=== PATIENT | female | born 1945 | race African-American/Black ===

== ENCOUNTER 2017-01-05 11:21 | Emergency (ER) | payer BC, OTHER ==
[2017-01-05 11:33] VITALS: TEMP 98.1; BMI 25.7
--- NOTE | 2017-01-05 12:15 | PDOC ---
History of Present Illness - General History Source: Patient Exam Limitations: No Limitations - History of Present Illness Initial Comments: 01/05/17 15:37 The patient is a 65 year old female with a significant past medical history of hypertension (noncompliant with medication), presenting to the Emergency Department with left sided neck pain radiating to her left shoulder, and left leg pain for 3 days. The patient reports that she was watching TV last night when the neck pain gradually became worse. She reports that the neck pain radiates to her left shoulder and upper arm, and describes the pain as achy and is worse with certain movements. There is no associated numbness/tingling/ weakness in her hand/forearm and there was no recent injuries. She also reports intermittent left lower leg pain, the last time she felt the pain was yesterday. She describes her pain as an aching sensation in her lower leg but there is no pain currently and there is no associated swelling, numbness/ tingling/weakness, hip pain, back pain, recent trauma. She denies any exacerbating factors such as movement for her leg pain. Pt denies any heavy lifting. No worsening of symptoms on exertion/ambulation. The patient denies weakness, arthralgia, or back pain. No associated facial numbness/tingling/weakness. Patient denies recent fall or trauma. Patient denies dizziness, headache, and visual changes. Patient denies chest pain, palpitations, and diaphoresis. Patient denies cough, fever, and chills. Patient denies nausea, vomiting, and diarrhea. <Jenni Rosario - Last Filed: 01/05/17 15:37> - General History Source: Patient Exam Limitations: No Limitations - History of Present Illness Initial Comments: Prior HPI is incorrect and for the wrong patient - the below HPI is correct. The patient is a 71 year old female with a significant past medical history of dementia, hypertension, acid reflux, gastritis, vertigo, and thyroid disease, presenting to the Emergency Department with altered mental status and confusion. The pt awoke today and was saying things like 'I went to the eye doctor with Rajendra' to her rajendra, referring to her inn the 3rd person , and when asked what his name was, she had trouble remembering his name. Per the family, the pt has been seeing neurology and ophthalmalogy for complaint of 'floaters', which the family describes as her seeing things in the room, and seeing it fall on the things she eats/drinks, which makes her not want to eat/ drink it. Family also notes that yesterday she was sleeping more than usual and the pt had complained of a mild headache which seemed to resolve after an aspirin. The family notes that the pt has had trouble remembering her familes and firends names here and there but not consistently. Pt also notes some dysuria for the past efw months. Pt denies current headache, dizziness, n/v, fever/chills, cough, abd pain, back pain, leg swelling, diarrhea/melena, vision changes, nuumbness/tingling/weakness. Past Medical Hx: hypertension, acid reflux, gastritis, vertigo, and thyroid disease Neurologist: Dr. Ojeda <Eyal Cardenas - Last Filed: 01/07/17 07:31> - General Chief Complaint: Altered Mental Status Stated Complaint: CONFUSION Time Seen by Provider: 01/05/17 11:39 Past History <Jenni Rosario - Last Filed: 01/05/17 15:37> - Past Medical History Anemia: No Asthma: No Cancer: No Cardiac Disorders: Yes (PALPITATIONS) CVA: No COPD: No CHF: No Dementia: No Diabetes: No GI Disorders: Yes (ACID REFLUX;H. PYLORI;GASTRITIS;H/H; TUBULOVILLOUS ADENOMA POLYP;) Disorders: No HTN: Yes Hypercholesterolemia: No Liver Disease: No Suicide Attempt (Hx): No Seizures: No Thyroid Disease: Yes Other medical history: fell in 2013 hit her head - Surgical History Abdominal Surgery: No Appendectomy: No Cardiac Surgery: No Cholecystectomy: Yes Lung Surgery: No Neurologic Surgery: No Orthopedic Surgery: No - Psycho/Social/Smoking Cessation Hx Anxiety: No Suicidal Ideation: No Smoking Status: No Smoking History: Never smoked Number of Cigarettes Smoked Daily: 0 Information on smoking cessation initiated: No Hx Alcohol Use: No Drug/Substance Use Hx: No Substance Use Type: None Hx Substance Use Treatment: No <Eyal Cardenas - Last Filed: 01/07/17 07:31> - Past Medical History Allergies/Adverse Reactions: Allergies Allergy/AdvReac Type Severity Reaction Status Date / Time No Known Allergies Allergy Verified 01/05/17 11:26 Home Medications: Ambulatory Orders Fosinopril Sodium 10 mg PO DAILY 0701/13 Metoprolol Succinate [Toprol XL -] 50 mg PO DAILY 05/11/13 Donepezil HCl [Aricept -] 10 mg PO DAILY 02/28/15 Simvastatin [Zocor -] 1 tab PO DAILY 06/03/15 Quetiapine Fumarate [Seroquel -] 25 mg PO HS 01/05/17 Review of Systems - Review of Systems Able to Perform ROS?: Yes Comments:: 01/05/17 15:38 CONSTITUTIONAL: No reported: Fever, Chills, Diaphoresis, Generalized Weakness, Malaise, Loss of Appetite HEENT: No reported: Rhinorrhea, Nasal Congestion, Throat Pain, Throat Swelling, Difficulty Swallowing, Mouth Swelling, Ear Pain, Eye Pain, Visual Changes CARDIOVASCULAR: No reported: Chest Pain, Syncope, Palpitations, Irregular Heart Rate, Lightheadedness, Peripheral Edema RESPIRATORY: No reported: Cough, Shortness of Breath, SOB with Exertion, Orthopnea, Wheezing , Stridor, Hemoptysis GASTROINTESTINAL: No reported: Abdominal pain, Abdominal Distension, Nausea, Vomiting, Diarrhea, Constipation, Melena, Hematochezia GENITOURINARY: No reported: Dysuria, Frequency, Urgency, Hesitancy, Flank Pain, Genital Pain MUSCULOSKELETAL: Present: + Left side neck pain, + Left shoulder pain, + Left leg pain No reported: Myalgia, Arthralgia, Joint Swelling, Back pain SKIN: No reported: Rash, Itching, Pallor HEMATOLOGIC/IMMUNOLOGIC: No reported: Easy Bleeding, Easy Bruising, Lymphadenopathy, Frequent infections ENDOCRINE: No reported: Unexplained Weight Gain, Unexplained Weight Loss, Heat Intolerance , Cold Intolerance NEUROLOGIC: No reported: Headache, Focal Weakness, Paresthesias, Vertigo, Lightheadedness, Unsteady Gait, Seizure, Mental Status Changes, Incontinence PSYCHIATRIC: No reported: Anxiety, Depression <Jenni Rosario - Last Filed: 01/05/17 15:37> - Review of Systems Able to Perform ROS?: Yes Comments:: The Prior ROS is for the wrong patient - The below ROS is correct 01/07/17 07:29 CONSTITUTIONAL: No reported: Fever, Chills, Diaphoresis, Generalized Weakness, Malaise, Loss of Appetite HEENT: No reported: Rhinorrhea, Nasal Congestion, Throat Pain, Throat Swelling, Difficulty Swallowing, Mouth Swelling, Ear Pain, Eye Pain, Visual Changes CARDIOVASCULAR: No reported: Chest Pain, Syncope, Palpitations, Irregular Heart Rate, Lightheadedness, Peripheral Edema RESPIRATORY: No reported: Cough, Shortness of Breath, SOB with Exertion, Orthopnea, Wheezing , Stridor, Hemoptysis GASTROINTESTINAL: No reported: Abdominal pain, Abdominal Distension, Nausea, Vomiting, Diarrhea, Constipation, Melena, Hematochezia GENITOURINARY: Reported: + Dysuria No reported: Frequency, Urgency, Hesitancy, Flank Pain, Genital Pain MUSCULOSKELETAL: No reported: Myalgia, Arthralgia, Joint Swelling, Back pain, Neck Pain SKIN: No reported: Rash, Itching, Pallor HEMATOLOGIC/IMMUNOLOGIC: No reported: Easy Bleeding, Easy Bruising, Lymphadenopathy, Frequent infections ENDOCRINE: No reported: Unexplained Weight Gain, Unexplained Weight Loss, Heat Intolerance , Cold Intolerance NEUROLOGIC: +confusion per family No reported: Headache, Focal Weakness, Paresthesias, Vertigo, Lightheadedness, Unsteady Gait, Seizure, Incontinence PSYCHIATRIC: No reported: Anxiety, Depression <Ronald,Eyal - Last Filed: 01/07/17 07:31> *Physical Exam - Vital Signs Last Vital Signs Temp Pulse Resp BP Pulse Ox 98.1 F 98 H 18 157/101 100 01/05/17 11:24 01/05/17 11:24 01/05/17 11:24 01/05/17 11:24 01/05/17 11:24 - Physical Exam Comments: 01/05/17 15:38 GENERAL: The patient is awake, alert, and fully oriented, Nontoxic - in no acute distress. HEAD: Normocephalic, atraumatic. EYES: extraocular movements intact, sclera anicteric, conjunctiva clear. ENT: Normal voice, Moist mucous membranes. NECK: Normal range of motion, supple LUNGS: Breath sounds equal, clear to auscultation bilaterally. No wheezes, no rhonchi, no rales. HEART: Regular rate and rhythm, normal S1 and S2 without murmur, rub or gallop. ABDOMEN: Soft, nontender, normoactive bowel sounds. No guarding, no rebound. . No CVA tenderness EXTREMITIES: +tenderness in the L trapezius, worse with arm abduction, normal strength/sensation in extremities, Normal range of motion, no edema. negative homans sign b/l, no focal tenderness in the leg/foot. sensation/motor intact in LE/UE. NEUROLOGICAL: No facial assymetry, Normal speech cn2-12 intact symmetrically PSYCH: Normal mood, normal affect. SKIN: Warm, Dry, normal turgor. <Jenni Rosario - Last Filed: 01/05/17 15:37> - Vital Signs Last Vital Signs Temp Pulse Resp BP Pulse Ox 98.1 F 98 H 18 157/101 100 01/05/17 11:24 01/05/17 11:24 01/05/17 11:24 01/05/17 11:24 01/05/17 11:24 - Physical Exam Comments: The above PE is for the wrong patient - the PE below is correct. 01/07/17 07:30 GENERAL: A&O x2. The patient is awake, and alert. Nontoxic - in no acute distress. HEAD: Normocephalic, atraumatic. EYES: extraocular movements intact, sclera anicteric, conjunctiva clear. ENT: Normal voice, Moist mucous membranes. NECK: Normal range of motion, No JVD LUNGS: Breath sounds equal, clear to auscultation bilaterally. No wheezes, no rhonchi, no rales. HEART: Regular rate and rhythm, normal S1 and S2 without murmur, rub or gallop. ABDOMEN: Soft, nontender, normoactive bowel sounds. No guarding, no rebound. No masses. No CVA tenderness EXTREMITIES: Normal range of motion, no edema. No clubbing or cyanosis. No cords , erythema, or tenderness. PSYCH: Normal mood, normal affect. SKIN: Warm, Dry, normal turgor. NEURO: Mental status: The patient is oriented x2. Cranial nerves: Cranial nerves II through XII are intact Motor: The upper extremities are 5 over 5 in all muscle groups. The lower extremities are 5 over 5 in all muscle groups. Negative pronator drift Sensation: Sensation is intact to light touch throughout. romberg negative Cerebellar: [id number] is normal in both upper extremities. Gait: Normal. <Eyal Cardenas - Last Filed: 01/07/17 07:31> Heart Score/ECG Review - ECG Impressions Comment:: 01/05/17 13:14 Twelve-lead EKG was performed and reviewed by me. There is normal sinus rhythm with a normal rate. Rate of 80 The axis is normal. The intervals are normal. There is normal R wave progression Nonspecific ST-T wave changes <Eyal Cardenas - Last Filed: 01/07/17 07:31> ED Treatment Course - LABORATORY CBC & Chemistry Diagram: 01/05/17 12:05 01/05/17 12:05 - ADDITIONAL ORDERS Additional order review: Laboratory Results 01/05/17 01/05/17 01/05/17 12:05 12:05 12:05 INR Sodium 146 H Potassium 3.4 L D Chloride 108 H Carbon Dioxide 29 Anion Gap 9 BUN 7 D Creatinine 1.0 Creat Clearance w eGFR 54.66 Random Glucose 113 H D Calcium 9.4 Total Bilirubin 0.6 AST 30 D ALT 19 D Alkaline Phosphatase 57 Creatine Kinase 387 H D CK-MB (CK-2) 1.890 Troponin I < 0.02 Total Protein 7.3 Albumin 4.0 TSH 0.55 Urine Color Ltyellow Urine Appearance Clear Urine pH 7.0 Ur Specific [place] 1.009 Urine Protein Negative Urine Glucose (UA) Negative Urine Ketones Trace H Urine Blood Negative Urine Nitrite Negative Urine Bilirubin Negative Urine Urobilinogen Negative Ur Leukocyte Esterase Negative 01/05/17 12:05 INR 1.17 H Sodium Potassium Chloride Carbon Dioxide Anion Gap BUN Creatinine Creat Clearance w eGFR Random Glucose Calcium Total Bilirubin AST ALT Alkaline Phosphatase Creatine Kinase CK-MB (CK-2) Troponin I Total Protein Albumin TSH Urine Color Urine Appearance Urine pH Ur Specific [place] Urine Protein Urine Glucose (UA) Urine Ketones Urine Blood Urine Nitrite Urine Bilirubin Urine Urobilinogen Ur Leukocyte Esterase 01/05/17 12:05 RBC 4.31 MCV 91.1 MCHC 32.5 RDW 13.9 MPV 7.3 L Neutrophils % 70.0 Lymphocytes % 23.9 D Monocytes % 5.2 Eosinophils % 0.3 Basophils % 0.6 <Jenni Rosario - Last Filed: 01/05/17 15:37> - LABORATORY CBC & Chemistry Diagram: 01/05/17 12:05 01/05/17 12:05 - RADIOLOGY Radiology Studies Ordered: Category Date Time Status HEAD CT WITHOUT CONTRAST [CT] Stat CT Scan 01/05/17 12:00 Ordered CHEST X-RAY PORTABLE* [RAD] Stat Radiology 01/05/17 12:00 Ordered <Eyal Cardenas - Last Filed: 01/07/17 07:31> Medical Decision Making - Medical Decision Making 01/05/17 12:50 71y F hx of dementia, htn, hl, presents with complaint AMS - when the pt awoke this morning, the pt was referring to her in 3rd person which she has never done before. Pt denies any complaints currenlty. exam unremarkable beside mental status AOx2. will obtain ct head, ua/cxr to r/o occult infection will obtain blood work to r/o anemia, metabolic dernagement. suspect her syptoms may be secondary to her dementia - but will rule out organic causes. A portion of this note was documented by scribe services under my direction. I have reviewed the details of the note, within reason, and agree with the documentation with the following case summary and management plan written by me 01/05/17 13:15 01/05/17 15:59 labs reviewed slightly low K - will replete with 40PO head ct negative ua, cxr negative for infection 01/05/17 16:16 will d/c the patient with pmd fu return precautions were discussed will have the pt fu with dr. broussard and dr. ojeda next week. return precautions were discussed I discussed the physical exam findings, ancillary test results and final diagnoses with the patient. I answered all of the patient's questions. The patient was satisfied with the care received and felt comfortable with the discharge plan and treatment plan. The patient will call their primary care physician within 24 hours to arrange follow-up and will return to the Emergency Department with any new, persistent or worsening symptoms. <Eyal Cardenas - Last Filed: 01/07/17 07:31> *DC/Admit/Observation/Transfer - Attestations Scribe Attestion: 01/05/17 15:39 Documentation prepared by Jenni Rosario, acting as medical coder for Eyal Cardenas MD. <Jenni Rosario - Last Filed: 01/05/17 15:37> - Discharge Dispostion Admit: No <Eyal Cardenas - Last Filed: 01/07/17 07:31> Diagnosis at time of Disposition: Confusion - Discharge Dispostion Disposition: HOME Condition at time of disposition: Improved - Referrals Referrals: Anderson Carreno MD [Primary Care Provider] - Paramjit Ojeda MD [Staff Physician] - - Patient Instructions Printed Discharge Instructions: DI for Alzheimer's Disease Additional Instructions: Return to the emergency department immediately with ANY new, persistent or worsening symptoms. Your workup today in the hospital is negative for any organic disease. You MUST call and follow up with your doctor and neurollgist within several days for further evaluation of your symptoms. Results were discussed with you. Please make sure your doctor reviews the results of your emergency evaluation.
[2017-01-05 12:43] LABS: BASOPHIL 0.6 % (0-2.0); EOSINOPHIL 0.3 % (0-4.5); MCH 29.6 pg (25.7-33.7); MCHC 32.5 g/dl (32.0-36.0); MEAN CELL VOLUME 91.1 fl (80-96); MEAN PLT VOLUME 7.3 fl (7.5-11.1); PLATELET COUNT 217 K/MM3 (134-434); RDW 13.9 % (11.6-15.6); WHITE BLOOD COUNT 6.6 K/mm3 (4.0-10.0)
[2017-01-05 13:02] LABS: INR 1.17 (0.82-1.09); PROTHROMBIN TIME (PATIENT) 12.9 SEC (9.98-11.88)
[2017-01-05 13:13] LABS: ANION GAP 9 (8-16); CALCIUM 9.4 mg/dL (8.5-10.1); CO2 29 mmol/L (21-32); GLUCOSE,RANDOM 113 mg/dL (74-106); SGOT/AST 30 U/L (15-37); SGPT/ALT 19 U/L (12-78)
[2017-01-05 13:17] LABS: ALK PHOS 57 U/L (45-117); BILIRUBIN,TOTAL 0.6 mg/dL (0.2-1.0); TOT PROT 7.3 g/dl (6.4-8.2); TROPONIN I < 0.02 ng/ml (0.00-0.05)
[2017-01-05 15:17] LABS: URINE APPEARANCE CLEAR; URINE BILIRUBIN NEGATIVE (NEGATIVE); URINE BLOOD NEGATIVE (NEGATIVE); URINE COLOR LTYELLOW; URINE GLUCOSE (UA) NEGATIVE (NEGATIVE); URINE KETONE TRACE (NEGATIVE); URINE LEUK ESTERASE NEGATIVE (NEGATIVE); URINE NITRITE NEGATIVE (NEGATIVE); URINE PROTEIN NEGATIVE (NEGATIVE); URINE UROBILINOGEN NEGATIVE E.U./dl (0.2-1.0)
[2017-01-05] MEDS ORDERED: POTASSIUM CHLORIDE TABS 20 MEQ TABLET.ER (FP) PO ONE (15:51)
[2017-01-05] MEDS ORDERED: POTASSIUM CHLORIDE 40 MEQ/30 ML UNIT DOSE CUP ONE (15:53)
[2017-01-05 16:26] VITALS: BP 136/78; PULSE 69
--- NOTE | 2017-01-05 21:01 | EKG ---
Test Reason : Blood Pressure : / mmHG Vent. Rate : 080 BPM Atrial Rate : 080 BPM P-R Int : 144 ms QRS Dur : 070 ms QT Int : 356 ms P-R-T Axes : 070 030 040 degrees QTc Int : 410 ms NORMAL SINUS RHYTHM POSSIBLE LEFT ATRIAL ENLARGEMENT NONSPECIFIC T WAVE ABNORMALITY ABNORMAL ECG WHEN COMPARED WITH ECG OF 28-FEB-2015 09:05, NO SIGNIFICANT CHANGE WAS FOUND Confirmed by SIN ROGERS MD ([id number]) on 01/05/2017 9:00:55 PM Referred By: Confirmed By:SIN ROGERS MD
== END 2017-01-05 16:26 | disposition home or self-care (01) ==
LOC: JER 11:21
DX: F03.90 Unspecified dementia, unspecified severity, without behavioral disturbance, psychotic disturbance, mood disturbance, and anxiety (principal); I10 Essential (primary) hypertension; Z91.14 Patient's other noncompliance with medication regimen; E87.6 Hypokalemia
CPT/HCPCS: 36415; 70450-TC; 71010-TC; 80053; 81003; 82550; 82553; 84443; 84484; 85025; 85610; 93005; 93010; 99283-25

== ENCOUNTER 2017-02-03 11:49 | Emergency (ER) | payer BC, OTHER ==
[2017-02-03 11:52] VITALS: TEMP 98.2; BMI 25.7
--- NOTE | 2017-02-03 12:01 | PDOC ---
History of Present Illness - History of Present Illness Initial Comments: 02/03/17 12:38 The patient is a 71 year old female, with a significant past medical history of dementia, hypertension (noncompliant with medication), GERD, gastritis, vertigo , and thyroid disease , who presents to the emergency department with chest pain and hot flashes today. She reports her chest pain is localized to her midsternal region and radiates just under her breast bilaterally which she states is brought on during times of frustration. She states she had an argument with her about taking medication this morning. She also reports her hot flashes as feeling similar to her experience with menopause, however, is now associated with visual floaters that seem as though they are physically there. The patient presents with her who reports the patient has unintentionally lost about 40 pounds in the past 3 months. She denies shortness of breath, headache and dizziness. She denies fever, chills , nausea, vomit, diarrhea and constipation. She denies dysuria, frequency, urgency and hematuria. Allergies: NKDA Past surgical history: Cholecystectomy Social history: Denies toxic habits PCP - Dr. Carreno Neurologist - Dr. Hernandez Press Loader - Dr. Alvarado <Prabha Roper - Last Filed: 02/03/17 15:23> <Alcon Ewing - Last Filed: 02/03/17 16:34> - General Chief Complaint: Chest Pain Stated Complaint: CHEST PAIN Time Seen by Provider: 02/03/17 12:00 Past History <Prabha Roper - Last Filed: 02/03/17 15:23> - Past Medical History Anemia: No Asthma: No Cancer: No Cardiac Disorders: Yes (PALPITATIONS) CVA: No COPD: No CHF: No Dementia: No Diabetes: No GI Disorders: Yes (ACID REFLUX;H. PYLORI;GASTRITIS;H/H; TUBULOVILLOUS ADENOMA POLYP;) Disorders: No HTN: Yes Hypercholesterolemia: No Liver Disease: No Suicide Attempt (Hx): No Seizures: No Thyroid Disease: Yes - Surgical History Abdominal Surgery: No Appendectomy: No Cardiac Surgery: No Cholecystectomy: Yes Lung Surgery: No Neurologic Surgery: No Orthopedic Surgery: No - Psycho/Social/Smoking Cessation Hx Anxiety: No Suicidal Ideation: No Smoking Status: No Smoking History: Never smoked Number of Cigarettes Smoked Daily: 0 Hx Alcohol Use: No Drug/Substance Use Hx: No Substance Use Type: None Hx Substance Use Treatment: No <Alcon Ewing - Last Filed: 02/03/17 16:34> - Past Medical History Allergies/Adverse Reactions: Allergies Allergy/AdvReac Type Severity Reaction Status Date / Time No Known Allergies Allergy Verified 02/03/17 11:52 Home Medications: Ambulatory Orders Fosinopril Sodium 10 mg PO DAILY 05/11/13 Metoprolol Succinate [Toprol XL -] 50 mg PO DAILY 05/11/13 Donepezil HCl [Aricept -] 10 mg PO DAILY 02/28/15 Simvastatin [Zocor -] 1 tab PO DAILY 06/03/15 Quetiapine Fumarate [Seroquel -] 25 mg PO HS 01/05/17 Review of Systems - Review of Systems Able to Perform ROS?: Yes Comments:: 02/03/17 12:38 GENERAL/CONSTITUTIONAL: No fever or chills. No weakness. HEAD, EYES, EARS, NOSE AND THROAT: (+) visual floaters. No ear pain or discharge. No sore throat. CARDIOVASCULAR: (+) chest pain. No shortness of breath. RESPIRATORY: No cough, wheezing, or hemoptysis. GASTROINTESTINAL: No nausea, vomiting, diarrhea or constipation. GENITOURINARY: No dysuria, frequency, or change in urination. MUSCULOSKELETAL: No joint or muscle swelling or pain. No neck or back pain. SKIN: No rash NEUROLOGIC: No headache, vertigo, loss of consciousness, or change in strength/ sensation. ENDOCRINE: (+) unintentional 40lb weight loss. No increased thirst. HEMATOLOGIC/LYMPHATIC: No anemia, easy bleeding, or history of blood clots. ALLERGIC/IMMUNOLOGIC: No hives or skin allergy. <Prabha Roper - Last Filed: 02/03/17 15:23> *Physical Exam - Vital Signs Last Vital Signs Temp Pulse Resp BP Pulse Ox 98.2 F 118 H 20 155/90 98 02/03/17 11:49 02/03/17 11:49 02/03/17 11:49 02/03/17 11:49 02/03/17 11:49 - Physical Exam Comments: 02/03/17 12:39 GENERAL: Awake, alert, and fully oriented, in no acute distress HEAD: No signs of trauma EYES: PERRLA, EOMI, sclera anicteric, conjunctiva clear ENT: Auricles normal inspection, hearing grossly normal, nares patent, oropharynx clear without exudates. Moist mucosa NECK: Normal ROM, supple, no lymphadenopathy, JVD, or masses LUNGS: Breath sounds equal, clear to auscultation bilaterally. No wheezes, and no crackles HEART: Regular rate and rhythm, normal S1 and S2, no murmurs, rubs or gallops ABDOMEN: Soft, nontender, normoactive bowel sounds. No guarding, no rebound. No masses EXTREMITIES: Normal range of motion, no edema. No clubbing or cyanosis. No cords, erythema, or tenderness NEUROLOGICAL: Cranial nerves II through XII grossly intact. Normal speech, normal gait SKIN: Warm, Dry, normal turgor, no rashes or lesions noted. <Prabha Roper - Last Filed: 02/03/17 15:23> - Vital Signs Last Vital Signs Temp Pulse Resp BP Pulse Ox 98.2 F 118 H 20 155/90 98 02/03/17 11:49 02/03/17 11:49 02/03/17 11:49 02/03/17 11:49 02/03/17 11:49 <Alcon Ewing - Last Filed: 02/03/17 16:34> ED Treatment Course - LABORATORY CBC & Chemistry Diagram: 02/03/17 12:20 02/03/17 12:20 - RADIOLOGY Radiograph Interpretation: 02/03/17 15:23 CXR was read by Dr. Nieto at 13:04 Impression: No acute pathology Chest CTA was read by Dr. Marin at 15:14 Impression: No CT evidence of pulmonary embolism <Prbaha Roper - Last Filed: 02/03/17 15:23> - LABORATORY CBC & Chemistry Diagram: 02/03/17 12:20 02/03/17 12:20 <Alcon Ewing - Last Filed: 02/03/17 16:34> Medical Decision Making - Medical Decision Making 02/03/17 12:45 The patient is a 71 year old female who presents with chest pain, hot flashes and visual floaters today. The patients medical history is significant for dementia, hypertension ( noncompliant with medication), GERD, gastritis, vertigo, and thyroid disease. I will obtain EKG, cardiac profile, CBC, Cmp, magnesium, PT/INR, CXR, cardiac monitoring to rule out <Prabha Roper - Last Filed: 02/03/17 15:23> *DC/Admit/Observation/Transfer - Attestations Scribe Attestion: 02/03/17 12:40 Documentation prepared by Prabha Roper, acting as emergency medical service manager for Alcon Ewing MD <Prabha Roper - Last Filed: 02/03/17 15:23> - Attestations Physician Attestion: 02/03/17 12:01 I, Dr. Alcon Ewing, attest that this document has been prepared under my direction and personally reviewed by me in its entirety. I further attest, that it accurately reflects all work, treatment, procedures and medical decision -making performed by me. <Alcon Ewing - Last Filed: 02/03/17 16:34> Diagnosis at time of Disposition: Atypical chest pain - Discharge Dispostion Disposition: HOME Condition at time of disposition: Good - Referrals Referrals: Anderson Carreno MD [Primary Care Provider] - - Patient Instructions Printed Discharge Instructions: DI for Atypical Chest Pain Additional Instructions: Katheryn - Make certain that you are taking your medicines. Simvastatin, Metoprolol, Fosinopril and Donepezil every morning. Quetiapine at night. Return to us if problems. Follow up with your doctor later this week. Best- Dr. Alcon Ewing
[2017-02-03] MEDS ORDERED: ASPIRIN 81 MG CHEWABLE TABLETS PO ONE (12:20)
[2017-02-03] MEDS ORDERED: SODIUM CHLORIDE 1,000 ML IV STA (12:20)
[2017-02-03] MEDS ORDERED: ASPIRIN 81 MG CHEWABLE TABLETS ONE (12:44)
[2017-02-03 12:46] LABS: BASOPHIL 0.6 % (0-2.0); EOSINOPHIL 0.3 % (0-4.5); MCHC 33.2 g/dl (32.0-36.0); MEAN CELL VOLUME 90.4 fl (80-96); MEAN PLT VOLUME 7.4 fl (7.5-11.1); PLATELET COUNT 229 K/MM3 (134-434); RDW 13.8 % (11.6-15.6); WHITE BLOOD COUNT 6.5 K/mm3 (4.0-10.0)
[2017-02-03 12:49] LABS: ANION GAP 13 (8-16); BILIRUBIN,TOTAL 0.7 mg/dL (0.2-1.0); CALCIUM 9.1 mg/dL (8.5-10.1); CO2 25 mmol/L (21-32); GLUCOSE,RANDOM 84 mg/dL (74-106); SGOT/AST 20 U/L (15-37); SGPT/ALT 12 U/L (12-78); TOT PROT 7.3 g/dl (6.4-8.2)
[2017-02-03 12:52] LABS: ALK PHOS 54 U/L (45-117); TROPONIN I < 0.02 ng/ml (0.00-0.05)
[2017-02-03 12:55] LABS: INR 1.2 (0.82-1.09); PROTHROMBIN TIME (PATIENT) 13.2 SEC (9.98-11.88)
[2017-02-03 16:19] LABS: TROPONIN I 0.02 ng/ml (0.00-0.05)
[2017-02-03 16:45] VITALS: BP 145/87; PULSE 73
--- NOTE | 2017-02-03 22:27 | EKG ---
Test Reason : Blood Pressure : / mmHG Vent. Rate : 093 BPM Atrial Rate : 093 BPM P-R Int : 132 ms QRS Dur : 064 ms QT Int : 332 ms P-R-T Axes : 066 045 032 degrees QTc Int : 412 ms POOR DATA QUALITY, INTERPRETATION MAY BE ADVERSELY AFFECTED NORMAL SINUS RHYTHM POSSIBLE LEFT ATRIAL ENLARGEMENT BORDERLINE ECG WHEN COMPARED WITH ECG OF 05-JAN-2017 12:25, NO SIGNIFICANT CHANGE WAS FOUND Confirmed by SIN ROGERS MD ([id number]) on 02/03/2017 10:27:24 PM Referred By: Confirmed By:SIN ROGERS MD
== END 2017-02-03 16:45 | disposition home or self-care (01) ==
LOC: JER 11:49
PROC: 3E0337Z Introduction of Electrolytic and Water Balance Substance into Peripheral Vein, Percutaneous Approach (ICD-10-PCS; principal; 2017-02-03)
DX: R07.89 Other chest pain (principal); I10 Essential (primary) hypertension; E07.89 Other specified disorders of thyroid; R42 Dizziness and giddiness
CPT/HCPCS: 36415; 71010-TC; 71275-TC; 80053; 82550; 83735; 84484; 85025; 85610; 93005; 93010; 99283-25; Q9967

== ENCOUNTER 2017-02-15 14:06 | Emergency (ER) | payer BC, OTHER ==
[2017-02-15 14:20] VITALS: TEMP 98.4; BMI 24.0
[2017-02-15 15:55] LABS: BASOPHIL 0.6 % (0-2.0); EOSINOPHIL 0.3 % (0-4.5); MCH 29.7 pg (25.7-33.7); MEAN CELL VOLUME 89.9 fl (80-96); MEAN PLT VOLUME 7.4 fl (7.5-11.1); PLATELET COUNT 246 K/MM3 (134-434); RDW 13.7 % (11.6-15.6); WHITE BLOOD COUNT 7.2 K/mm3 (4.0-10.0)
[2017-02-15 16:09] LABS: INR 1.16 (0.82-1.09); PROTHROMBIN TIME (PATIENT) 12.8 SEC (9.98-11.88)
[2017-02-15 16:23] LABS: ALBUMIN 4.4 g/dl (3.4-5.0); ANION GAP 11 (8-16); CALCIUM 9.9 mg/dL (8.5-10.1); CO2 28 mmol/L (21-32); COCKROFT - GAULT 51.7225; GLUCOSE,RANDOM 95 mg/dL (74-106); SGOT/AST 24 U/L (15-37); SGPT/ALT 18 U/L (12-78)
[2017-02-15 16:29] LABS: ALK PHOS 56 U/L (45-117); TOT PROT 7.9 g/dl (6.4-8.2); TROPONIN I < 0.02 ng/ml (0.00-0.05)
--- NOTE | 2017-02-15 18:18 | PDOC ---
History of Present Illness - General History Source: Patient, Family (, daughter), Old Records Exam Limitations: No Limitations - History of Present Illness Initial Comments: 02/15/17 19:12 The patient is a 71 year old female, with a significant past medical history of hypertension, hyperlipidemia, thyroid disease, GERD and dementia, who presents to the emergency department with intermittent chest pain for the past 3 days. The patient was most recently seen in this ED on 02/03/2017 for chest pain, was seen and evaluated with unremarkable findings. The patient was discharged and advised to follow up with her booking clerk but she has not yet made an appointment to do so. The patient reports that her episodes of chest pain last several minutes in length. The patient states that her pain is somewhat alleviated when lying down and is somewhat exacerbated when sitting upright. The patient denies shortness of breath. The patient denies fever, chills, diaphoresis, nausea or vomiting. The patient denies any exertional/strenuous activity or any trauma. The patient called her PCP (Dr. Carreno) who advised her to be evaluated in the ED. Currently in the ED, the patient denies any symptoms. The patients and daughter are at the bedside. Allergies: None reported. Past Surgical History: Cholecystectomy. Social History: Non smoker. Denies alcohol or drug use. PCP: Dr. Carreno Slug Press Operator: Dr. Alvarado Neurologist: Dr. Hernandez <Lorelei Diane - Last Filed: 02/15/17 19:25> - General History Source: Patient, Family <Harshad Goodwin - Last Filed: 02/15/17 20:03> - General Chief Complaint: Chest Pain Stated Complaint: SENT BY PCP/CHEST PAIN Time Seen by Provider: 02/15/17 17:26 Past History <Lorelei Diane - Last Filed: 02/15/17 19:25> - Past Medical History Anemia: No Asthma: No Cancer: No Cardiac Disorders: Yes (PALPITATIONS) CVA: No COPD: No CHF: No Dementia: No Diabetes: No GI Disorders: Yes (ACID REFLUX;H. PYLORI;GASTRITIS;H/H; TUBULOVILLOUS ADENOMA POLYP;) Disorders: No HTN: Yes Hypercholesterolemia: No Liver Disease: No Suicide Attempt (Hx): No Seizures: No Thyroid Disease: Yes - Surgical History Abdominal Surgery: No Appendectomy: No Cardiac Surgery: No Cholecystectomy: Yes Lung Surgery: No Neurologic Surgery: No Orthopedic Surgery: No - Psycho/Social/Smoking Cessation Hx Anxiety: No Suicidal Ideation: No Smoking Status: No Smoking History: Never smoked Have you smoked in the past 12 months: No Number of Cigarettes Smoked Daily: 0 Information on smoking cessation initiated: No Hx Alcohol Use: No Drug/Substance Use Hx: No Substance Use Type: None Hx Substance Use Treatment: No <Harshad Goodwin - Last Filed: 02/15/17 20:03> - Past Medical History Allergies/Adverse Reactions: Allergies Allergy/AdvReac Type Severity Reaction Status Date / Time No Known Allergies Allergy Verified 02/15/17 14:15 Home Medications: Ambulatory Orders Fosinopril Sodium 10 mg PO DAILY 05/11/13 Metoprolol Succinate [Toprol XL -] 50 mg PO DAILY 05/11/13 Donepezil HCl [Aricept -] 10 mg PO DAILY 02/28/15 Simvastatin [Zocor -] 1 tab PO DAILY 06/03/15 Quetiapine Fumarate [Seroquel -] 25 mg PO HS 01/05/17 Review of Systems - Review of Systems Able to Perform ROS?: Yes Comments:: 02/15/17 18:27 GENERAL/CONSTITUTIONAL: No fever or chills. No weakness. HEAD, EYES, EARS, NOSE AND THROAT: No change in vision. No ear pain or discharge. No sore throat. CARDIOVASCULAR: +Chest pain. No shortness of breath. RESPIRATORY: No cough, wheezing, or hemoptysis. GASTROINTESTINAL: No nausea, vomiting, diarrhea or constipation. GENITOURINARY: No dysuria, frequency, or change in urination. MUSCULOSKELETAL: No joint or muscle swelling or pain. No neck or back pain. SKIN: No rash. NEUROLOGIC: No headache, vertigo, loss of consciousness, or change in strength/ sensation. ENDOCRINE: No increased thirst. No abnormal weight change. HEMATOLOGIC/LYMPHATIC: No anemia, easy bleeding, or history of blood clots. ALLERGIC/IMMUNOLOGIC: No hives or skin allergy. <Lorelei Diane - Last Filed: 02/15/17 19:25> *Physical Exam - Vital Signs Last Vital Signs Temp Pulse Resp BP Pulse Ox 98.4 F 88 18 146/92 100 02/15/17 14:17 02/15/17 14:17 02/15/17 14:17 02/15/17 14:17 02/15/17 14:17 - Physical Exam Comments: 02/15/17 18:22 GENERAL: Awake, alert, and fully oriented, in no acute distress. HEAD: No signs of trauma. EYES: PERRLA, EOMI, sclera anicteric, conjunctiva clear. ENT: Auricles normal inspection, hearing grossly normal, nares patent, oropharynx clear without exudates. Moist mucosa. NECK: Normal ROM, supple, no lymphadenopathy, JVD, or masses. LUNGS: Breath sounds equal, clear to auscultation bilaterally. No wheezes, and no crackles. HEART: Regular rate and rhythm, normal S1 and S2, no murmurs, rubs or gallops. ABDOMEN: Soft, nontender, normoactive bowel sounds. No guarding, no rebound. No masses. EXTREMITIES: Normal range of motion, no edema. No clubbing or cyanosis. No cords, erythema, or tenderness. NEUROLOGICAL: Cranial nerves II through XII intact. Normal speech, normal gait. SKIN: Warm, dry, normal turgor, no rashes or lesions noted. <Lorelei Diane - Last Filed: 02/15/17 19:25> - Vital Signs Last Vital Signs Temp Pulse Resp BP Pulse Ox 98.4 F 88 18 146/92 100 02/15/17 14:17 02/15/17 14:17 02/15/17 14:17 02/15/17 14:17 02/15/17 14:17 <Harshad Goodwin - Last Filed: 02/15/17 20:03> Heart Score/ECG Review - History History: Slightly suspicious - Electrocardiogram EKG: Normal - Age Age: >/= 65 - Risk Factors Based on the list above the patient has:: 1-2 risk factors - Troponin Troponin: </= normal limit - Score Heart Score - Total: 3 #1 ECG reviewed & interpreted by me at: 14:30 02/15/17 18:14 NSR 81, no std/carlos, T wave flat III, normal axis, normal intervals, QTC 404 msec <Harshad Goodwin - Last Filed: 02/15/17 20:03> ED Treatment Course - LABORATORY CBC & Chemistry Diagram: 02/15/17 15:50 02/15/17 15:50 - ADDITIONAL ORDERS Additional order review: Laboratory Results 02/15/17 02/15/17 15:50 15:50 INR 1.16 H Sodium 143 Potassium 3.8 Chloride 104 Carbon Dioxide 28 Anion Gap 11 BUN 12 D Creatinine 1.0 Creat Clearance w eGFR 54.66 Random Glucose 95 Calcium 9.9 Total Bilirubin 1.0 D AST 24 ALT 18 D Alkaline Phosphatase 56 Creatine Kinase 122 Troponin I < 0.02 Total Protein 7.9 Albumin 4.4 02/15/17 15:50 RBC 4.52 MCV 89.9 MCHC 33.0 RDW 13.7 MPV 7.4 L Neutrophils % 70.0 Lymphocytes % 24.8 Monocytes % 4.3 Eosinophils % 0.3 Basophils % 0.6 <Lorelei Diane - Last Filed: 02/15/17 19:25> - LABORATORY CBC & Chemistry Diagram: 02/15/17 15:50 02/15/17 15:50 - ADDITIONAL ORDERS Additional order review: Laboratory Results 02/15/17 02/15/17 15:50 15:50 INR 1.16 H Sodium 143 Potassium 3.8 Chloride 104 Carbon Dioxide 28 Anion Gap 11 BUN 12 D Creatinine 1.0 Creat Clearance w eGFR 54.66 Random Glucose 95 Calcium 9.9 Total Bilirubin 1.0 D AST 24 ALT 18 D Alkaline Phosphatase 56 Creatine Kinase 122 Troponin I < 0.02 Total Protein 7.9 Albumin 4.4 02/15/17 15:50 RBC 4.52 MCV 89.9 MCHC 33.0 RDW 13.7 MPV 7.4 L Neutrophils % 70.0 Lymphocytes % 24.8 Monocytes % 4.3 Eosinophils % 0.3 Basophils % 0.6 <Harshad Goodwin - Last Filed: 02/15/17 20:03> Medical Decision Making - Medical Decision Making 02/15/17 18:22 EXAM: RAD/CHEST X-RAY PORTABLE Reviewed By: Dr. Jarrell Rizvi IMPRESSION: Unremarkable examination. Call placed to Dr. Alvarado at 17:41. Referred to answering service, awaiting callback. Dr. Beckham returned call at 17:55, case discussed. Call placed to Dr. Carreno at 18:03 and 18:48. Referred to answering service, awaiting callback. <RoxiLorelei - Last Filed: 02/15/17 19:25> - Medical Decision Making 02/15/17 18:14 A portion of this note was documented by scribe services under my direction. I have reviewed the details of the note, within reason, and agree with the documentation with the following case summary and management plan written by me. Patient treated in the ED. Nursing notes are reviewed and incorporated into the medical decision-making. Vital signs reviewed. Peripheral IV access obtained by the nurse, laboratory studies are drawn and sent, reviewed and interpreted by myself. Vital Signs Temp Pulse Resp BP Pulse Ox 98.4 F 88 18 146/92 100 02/15/17 14:17 02/15/17 14:17 02/15/17 14:17 02/15/17 14:17 02/15/17 14:17 71-year-old female with past medical history of hypertension, hyperlipidemia, dementia presents with chest pain. The patient has reported multiple episodes of chest pain. 2 weeks ago, patient was seen and evaluated. Shee was discharged at that time. However, in the last 3 days, the patient has been endorsing some atypical chest pain. She reports that when she sits up that her pain is exacerbated. When she lays back down, the pain is improved. She denies short of breath, diaphoresis or vomiting. She reports that this occurs in duration for several minutes. Denies exertional effect. Patient's PMD had called patient to be evaluated ER. She currently denies any symptoms. Patient presents with again chest pain to the ED. Her EKG appears normal and her initial troponin is negative. Patient will need a second troponin. However, I have low suspicion for acute cardiac etiology at this moment. I will prescribe Protonix in case this may potentially be gastritis. However, I had discussed the case with booking clerk Dr. Felix Beckham regarding the details of the case. He agrees that if the second troponin is negative, the patient can follow- up in their office for outpatient management. Family is at the bedside and agrees with plan. 02/15/17 20:02 CBC, BMP 02/15/17 15:50 02/15/17 15:50 CMP Sodium 143 mmol/L (136-145) 02/15/17 15:50 Potassium 3.8 mmol/L (3.5-5.1) 02/15/17 15:50 Chloride 104 mmol/L (98-107) 02/15/17 15:50 Carbon Dioxide 28 mmol/L (21-32) 02/15/17 15:50 Anion Gap 11 (8-16) 02/15/17 15:50 BUN 12 mg/dL (7-18) D 02/15/17 15:50 Creatinine 1.0 mg/dL (0.55-1.02) 02/15/17 15:50 Creat Clearance w eGFR 54.66 (>60) 02/15/17 15:50 Random Glucose 95 mg/dL (74-106) 02/15/17 15:50 Calcium 9.9 mg/dL (8.5-10.1) 02/15/17 15:50 Total Bilirubin 1.0 mg/dL (0.2-1.0) D 02/15/17 15:50 AST 24 U/L (15-37) 02/15/17 15:50 ALT 18 U/L (12-78) D 02/15/17 15:50 Alkaline Phosphatase 56 U/L (45-117) 02/15/17 15:50 Creatine Kinase 104 IU/L (26-192) 02/15/17 18:00 Troponin I < 0.02 ng/ml (0.00-0.05) 02/15/17 18:00 Total Protein 7.9 g/dl (6.4-8.2) 02/15/17 15:50 Albumin 4.4 g/dl (3.4-5.0) 02/15/17 15:50 Two troponins negative. Patient reports that she'll follow with cardiology. Return precautions given. Patient appears well. I discussed the physical exam findings, ancillary test results and final diagnoses with the patient. I answered all of the patient's questions. The patient was satisfied with the care received and felt comfortable with the discharge plan and treatment plan. The patient will call their primary care physician within 24 hours to arrange follow-up and will return to the Emergency Department with any new, persistant or worsening symptoms. <Harhsad Goodwin - Last Filed: 02/15/17 20:03> *DC/Admit/Observation/Transfer - Attestations Scribe Attestion: 02/15/17 18:21 Documentation prepared by Lorelei Diane, acting as medical record clerk for Harshad Goodwin MD. <Lorelei Diane - Last Filed: 02/15/17 19:25> - Discharge Dispostion Admit: No <Harshad Goodwin - Last Filed: 02/15/17 20:03> Diagnosis at time of Disposition: Chest pain, atypical - Discharge Dispostion Disposition: HOME Condition at time of disposition: Good - Referrals Referrals: Anderson Carreno MD [Primary Care Provider] - - Patient Instructions Printed Discharge Instructions: DI for Atypical Chest Pain Additional Instructions: You have had an unremarkable EKG and 2 negative troponins. Please follow-up with Dr. Alvarado. Call on Saturday to schedule appointment. If you develop recurrent chest pain, please return to the ER for further evaluation.
[2017-02-15 19:37] LABS: TROPONIN I < 0.02 ng/ml (0.00-0.05)
[2017-02-15 20:21] VITALS: BP 141/79; PULSE 84
--- NOTE | 2017-02-16 16:26 | EKG ---
Test Reason : Blood Pressure : / mmHG Vent. Rate : 081 BPM Atrial Rate : 081 BPM P-R Int : 146 ms QRS Dur : 066 ms QT Int : 348 ms P-R-T Axes : 072 041 035 degrees QTc Int : 404 ms POOR DATA QUALITY, INTERPRETATION MAY BE ADVERSELY AFFECTED NORMAL SINUS RHYTHM POSSIBLE LEFT ATRIAL ENLARGEMENT BORDERLINE ECG WHEN COMPARED WITH ECG OF 03-FEB-2017 11:57, NO SIGNIFICANT CHANGE WAS FOUND Confirmed by SIN ROGERS MD ([id number]) on 02/16/2017 4:26:24 PM Referred By: Confirmed By:SIN ROGERS MD
== END 2017-02-15 20:21 | disposition home or self-care (01) ==
LOC: JER 14:06
DX: R07.89 Other chest pain (principal); I10 Essential (primary) hypertension; E78.5 Hyperlipidemia, unspecified; K21.9 Gastro-esophageal reflux disease without esophagitis; F03.90 Unspecified dementia, unspecified severity, without behavioral disturbance, psychotic disturbance, mood disturbance, and anxiety; F06.8 Other specified mental disorders due to known physiological condition; E07.9 Disorder of thyroid, unspecified
CPT/HCPCS: 36415; 71010-TC; 80053; 82550; 84484; 85025; 85610; 93005; 93010; 99283-25

== ENCOUNTER 2018-04-03 09:22 | Emergency (ER) | payer OTHER ==
[2018-04-03 09:39] VITALS: TEMP 98.5; BMI 17.4
--- NOTE | 2018-04-03 10:22 | PDOC ---
History of Present Illness - General Chief Complaint: Chest Pain Stated Complaint: CHEST PAIN Time Seen by Provider: 04/03/18 09:55 History Source: Patient Exam Limitations: No Limitations - History of Present Illness Initial Comments: 04/03/18 10:14 The patient is a 72F with a PMH of hypertension, hyperlipidemia, thyroid disease, GERD and dementia who presents to the ER with her for CP. The patient has severe dementia and history is provided primarily by the . The states that the patient had complained of chest pressure this morning around 0830 which radiated to her L shoulder. The pain lasted for 45 minutes. The patient hadn't eaten or had anything to drink before this pain. The pt denies any fever, chills, nausea, vomiting, SOB, or active CP currently. The states that she has had infrequent CP in the past which has not been worked up. Past History - Past Medical History Allergies/Adverse Reactions: Allergies Allergy/AdvReac Type Severity Reaction Status Date / Time No Known Allergies Allergy Verified 04/03/18 09:36 Home Medications: Ambulatory Orders Fosinopril Sodium 10 mg PO DAILY 05/11/13 Metoprolol Succinate [Toprol XL -] 50 mg PO DAILY 05/11/13 Donepezil HCl [Aricept -] 10 mg PO DAILY 02/28/15 Simvastatin [Zocor -] 1 tab PO DAILY 06/03/15 Quetiapine Fumarate [Seroquel -] 25 mg PO HS 01/05/17 Anemia: No Asthma: No Cancer: No Cardiac Disorders: Yes (PALPITATIONS) CVA: No COPD: No CHF: No Dementia: Yes Diabetes: No GI Disorders: Yes (ACID REFLUX;H. PYLORI;GASTRITIS;H/H; TUBULOVILLOUS ADENOMA POLYP;) Disorders: No HTN: Yes Hypercholesterolemia: No Liver Disease: No Seizures: No Thyroid Disease: Yes - Surgical History Abdominal Surgery: No Appendectomy: No Cardiac Surgery: No Cholecystectomy: Yes Lung Surgery: No Neurologic Surgery: No Orthopedic Surgery: No - Suicide/Smoking/Psychosocial Hx Smoking Status: No Smoking History: Never smoked Have you smoked in the past 12 months: No Number of Cigarettes Smoked Daily: 0 Hx Alcohol Use: No Drug/Substance Use Hx: No Substance Use Type: None Hx Substance Use Treatment: No Review of Systems - Review of Systems Able to Perform ROS?: Yes Comments:: 04/03/18 10:35 GENERAL/CONSTITUTIONAL: No fever or chills. No weakness. HEAD, EYES, EARS, NOSE AND THROAT: No change in vision. No ear pain or discharge. No sore throat. CARDIOVASCULAR: Positive for resolved CP. No palpitations or lightheadedness. RESPIRATORY: No cough, wheezing, shortness of breath, or hemoptysis. GASTROINTESTINAL: No nausea, vomiting, diarrhea, constipation, or abdominal pain. GENITOURINARY: No dysuria, frequency, hematuria, or change in urination. MUSCULOSKELETAL: No joint or muscle swelling or pain. No neck or back pain. SKIN: No rash or lesions. NEUROLOGIC: No headache, numbness, tingling, weakness, loss of consciousness, or change in strength/sensation. ENDOCRINE: No increased thirst. No abnormal weight change. HEMATOLOGIC/LYMPHATIC: No anemia, easy bleeding, or history of blood clots. ALLERGIC/IMMUNOLOGIC: No hives or skin allergy. Is the patient limited [place] proficient: No *Physical Exam - Vital Signs Last Vital Signs Temp Pulse Resp BP Pulse Ox 98.5 F 81 19 145/89 100 04/03/18 09:36 04/03/18 09:36 04/03/18 09:36 04/03/18 09:36 04/03/18 09:36 - Physical Exam Comments: 04/03/18 10:35 GENERAL: Well developed, well nourished. Awake and alert. No acute distress. HEENT: Normocephalic, atraumatic. Hearing grossly normal. Moist mucous membranes. PERRLA, EOMI. No conjunctival pallor. Sclera are non-icteric. NECK: Supple. Full ROM. CARDIOVASCULAR: Regular rate and rhythm. No murmurs, rubs, or gallops. PULMONARY: No evidence of respiratory distress. Lungs clear to auscultation bilaterally. No wheezing, rales or rhonchi. ABDOMINAL: Soft. Non-tender. Non-distended. No rebound or guarding. GENITOURINARY: No CVA tenderness bilaterally. MUSCULOSKELETAL: Normal range of motion at all joints. No bony deformities or tenderness. EXTREMITIES: No cyanosis. No clubbing. No edema. No calf tenderness or swelling. SKIN: Warm and dry. Normal capillary refill. No rashes. No jaundice. NEUROLOGICAL: Alert, awake, appropriate. Cranial nerves 2-12 intact. Normal speech. Gait is normal without ataxia. PSYCHIATRIC: Cooperative. Good eye contact. Appropriate mood and affect. Heart Score/ECG Review #1 ECG reviewed & interpreted by me at: 10:26 General ECG Interpretation: Sinus Rhythm, Normal Rate, Normal Intervals, No acute ischemic changes Compared to previous ECG there are: No significant change 04/03/18 10:36 NSR Vent rate 71 MA 136 QRS 74 QTc 380 No MARVIN or STD. No acute ischemic changes noted. ED Treatment Course - LABORATORY CBC & Chemistry Diagram: 04/03/18 10:20 04/03/18 10:20 - RADIOLOGY Radiology Studies Ordered: Category Date Time Status CHEST X-RAY PORTABLE* [RAD] Stat Radiology 04/03/18 10:13 Ordered Medical Decision Making - Medical Decision Making 04/03/18 10:36 The patient is a 72F with a PMH of HTN, alzheimers, and GERD who presents to the ER with resolved CP. Although this story is atypical, the patient is not a good historian so I will order EKG and 1 troponin and will discuss the patient with Dr. Vernon. Pending labs/imaging. First EKG NSR, no MARVIN or STD. 04/03/18 12:08 CBC, CMP, trop negative. Will repeat trop at 1330. I have discussed the patient w/ Dr. Vernon who does not have any echo's or stress tests on the patient. If second troponin negative, will d/c home with PCP /outpatient cardiac workup. 04/03/18 14:22 2nd trop negative. Will d/c w/ PCP f/u. *DC/Admit/Observation/Transfer Diagnosis at time of Disposition: Chest pain, atypical - Discharge Dispostion Disposition: HOME Condition at time of disposition: Stable Decision to Admit order: No - Referrals Referrals: Anderson Carreno MD [Primary Care Provider] - - Patient Instructions Printed Discharge Instructions: DI for Chest Pain Additional Instructions: Please follow up with your primary care physician in 2-3 days. Please return to the ER if you have any signs or symptoms of chest pain, shortness of breath, uncontrollable fever, chills, nausea, vomiting, numbness, tingling, or weakness in any part of your body, changes in vision, or slurred speech. Please take your medications as prescribed. Please return to the ER if symptoms persist, worsen, or new symptoms arise. - Post Discharge Activity
[2018-04-03 10:30] LABS: BASO % 0.9 % (0-2.0); EOS % 1.2 % (0-4.5); HEMATOCRIT 36.6 % (32.4-45.2); HEMOGLOBIN 12.4 GM/dL (10.7-15.3); LYMPH % 34.1 % (8-40); MCH 31.3 pg (25.7-33.7); MCHC 33.8 g/dl (32.0-36.0); MEAN CELL VOLUME 92.6 fl (80-96); MEAN PLT VOLUME 6.9 fl (7.5-11.1); MONO % 5.8 % (3.8-10.2); PLATELET COUNT 220 K/MM3 (134-434); RBC 3.95 M/mm3 (3.60-5.2); RDW 12.8 % (11.6-15.6); WHITE BLOOD COUNT 5.2 K/mm3 (4.0-10.0)
[2018-04-03 10:51] LABS: ANION GAP 9 (8-16); BILIRUBIN,TOTAL 0.7 mg/dL (0.2-1.0); CALCIUM 9.1 mg/dL (8.5-10.1); CHLORIDE 107 mmol/L (98-107); CO2 28 mmol/L (21-32); GLUCOSE,RANDOM 98 mg/dL (74-106); POTASSIUM 3.8 mmol/L (3.5-5.1); SGOT/AST 21 U/L (15-37); SGPT/ALT 18 U/L (12-78); SODIUM 144 mmol/L (136-145)
[2018-04-03 11:00] LABS: ALK PHOS 57 U/L (45-117); BLOOD UREA NITROGEN 15 mg/dL (7-18); TOT PROT 7.3 g/dl (6.4-8.2)
--- NOTE | 2018-04-03 11:24 | PDOC ---
Attending Attestation - Resident Resident Name: FredkaseyJose - ED Attending Attestation I have performed the following: I have examined & evaluated the patient, The case was reviewed & discussed with the resident, I agree w/resident's findings & plan - HPI HPI: 04/03/18 11:17 72y/o F htn, GERD, advanced alzheimer's dementia p/w episode of chest pain this morning while lying in bed. Pt was in her USOH, this morning reported vague chest discomfort without associated sxs of n/v/diaphoresis/sob. She appeared in no acute distress per , but mentioned the pain radiated to her L shoulder so he presents for eval. Has had similar episodes in the past, at baseline hsa no exercise limitations. not sure if pt has had cardiac eval in the past. no PE risk factors, no infectious sxs of cough/f/c. - Physicial Exam PE: 04/03/18 11:19 VSS well appearing, nad now. smiling, dementia, pleasant. heart regular without murmur, lungs ctab no edema - Medical Decision Making 04/03/18 11:20 72y/o F p/w atypical chest pain at rest this morning, no distress and currently asx. EKG nonischemic check labs discuss with Dr. Carreno, pt is candidate for trop x2 and d/c if low risk/ concern for cardiac etiology or if can have expedited outpt work. Heart Score/ECG Review #1 ECG reviewed & interpreted by me at: 09:29 General ECG Interpretation: Sinus Rhythm, Normal Rate (71), Normal Intervals ( qtc 380), No acute ischemic changes
[2018-04-03 14:30] VITALS: BP 152/79; PULSE 88
--- NOTE | 2018-04-03 16:29 | EKG ---
Test Reason : Blood Pressure : / mmHG Vent. Rate : 071 BPM Atrial Rate : 071 BPM P-R Int : 136 ms QRS Dur : 074 ms QT Int : 350 ms P-R-T Axes : 071 046 046 degrees QTc Int : 380 ms POOR DATA QUALITY, INTERPRETATION MAY BE ADVERSELY AFFECTED NORMAL SINUS RHYTHM WITH SINUS ARRHYTHMIA POSSIBLE LEFT ATRIAL ENLARGEMENT BORDERLINE ECG WHEN COMPARED WITH ECG OF 15-FEB-2017 14:30, NO SIGNIFICANT CHANGE WAS FOUND Confirmed by CHUY ELIZALDE MD ([id number]) on 04/03/2018 4:29:21 PM Referred By: Confirmed By:CHUY ELIZALDE MD
--- NOTE | 2018-04-04 10:50 | EKG ---
Test Reason : Blood Pressure : / mmHG Vent. Rate : 081 BPM Atrial Rate : 081 BPM P-R Int : 138 ms QRS Dur : 064 ms QT Int : 350 ms P-R-T Axes : 081 044 043 degrees QTc Int : 406 ms POOR DATA QUALITY, INTERPRETATION MAY BE ADVERSELY AFFECTED NORMAL SINUS RHYTHM POSSIBLE LEFT ATRIAL ENLARGEMENT NONSPECIFIC T WAVE ABNORMALITY ABNORMAL ECG WHEN COMPARED WITH ECG OF 03-APR-2018 09:29, NO SIGNIFICANT CHANGE WAS FOUND Confirmed by ILDA FIERRO MD ([id number]) on 04/04/2018 10:50:49 AM Referred By: Confirmed By:ILDA FIERRO MD
== END 2018-04-03 15:44 | disposition home or self-care (01) ==
LOC: JER 09:22
DX: R07.89 Other chest pain (principal); I10 Essential (primary) hypertension; E78.00 Pure hypercholesterolemia, unspecified; K21.9 Gastro-esophageal reflux disease without esophagitis; F03.90 Unspecified dementia, unspecified severity, without behavioral disturbance, psychotic disturbance, mood disturbance, and anxiety
CPT/HCPCS: 36415; 71045-TC-FY; 80053; 82550; 84484; 85025; 93005; 93010; 99285-25

== ENCOUNTER 2019-03-01 05:33 | Emergency (ER) | payer OTHER ==
--- NOTE | 2019-03-01 05:49 | PDOC ---
History of Present Illness - General Chief Complaint: Injury Stated Complaint: FALL Time Seen by Provider: 03/01/19 05:40 - History of Present Illness Initial Comments: 03/01/19 05:49 73F with pmh of htn, GERD, advanced alzheimer's dementia brought by after she was found on the floor following a fall from bed. No LOC. Patient was found to be on her right side when she was found. He saw that she had a red miguel ángel on her nose so he brought her to the ED. Patient is barely verbal due to dementia and is giving all the history. Some complaints of neck pain as per . Past History - Past Medical History Allergies/Adverse Reactions: Allergies Allergy/AdvReac Type Severity Reaction Status Date / Time No Known Allergies Allergy Verified 03/01/19 05:47 Home Medications: Ambulatory Orders Donepezil HCl [Aricept -] 10 mg PO DAILY 02/28/15 Quetiapine Fumarate [Seroquel -] 50 mg PO HS 01/05/17 Amlodipine Besylate 10 mg PO DAILY 03/01/19 Ergocalciferol (Vitamin D2) [Vitamin D2] 50 mcg PO DAILY 03/01/19 Omeprazole 20 mg PO ASDIR 03/01/19 Simvastatin 20 mg PO ASDIR 03/01/19 Anemia: No Asthma: No Cancer: No Cardiac Disorders: Yes (PALPITATIONS) CVA: No COPD: No CHF: No Dementia: Yes Diabetes: No GI Disorders: Yes (ACID REFLUX;H. PYLORI;GASTRITIS;H/H; TUBULOVILLOUS ADENOMA POLYP;) Disorders: No HTN: Yes Hypercholesterolemia: Yes Liver Disease: No Seizures: No Thyroid Disease: Yes - Surgical History Abdominal Surgery: No Appendectomy: No Cardiac Surgery: No Cholecystectomy: Yes Lung Surgery: No Neurologic Surgery: No Orthopedic Surgery: No - Suicide/Smoking/Psychosocial Hx Smoking Status: No Smoking History: Never smoked Have you smoked in the past 12 months: No Number of Cigarettes Smoked Daily: 0 Hx Alcohol Use: No Drug/Substance Use Hx: No Substance Use Type: None Hx Substance Use Treatment: No Review of Systems - Review of Systems Able to Perform ROS?: No (advanced dementia) *Physical Exam - Vital Signs Last Vital Signs Temp Pulse Resp BP Pulse Ox 97.8 F 97 H 20 143/74 100 03/01/19 05:43 03/01/19 05:43 03/01/19 05:43 03/01/19 05:43 03/01/19 05:43 - Physical Exam General Appearance: Yes: Nourished, Appropriately Dressed. No: Apparent Distress HEENT: positive: EOMI, AVIS, Normal ENT Inspection, Other (red linear miguel ángel on her nose. No septal hematoma, no displacement of nasal brdge or crepitus. ) Respiratory/Chest: positive: Lungs Clear, Normal Breath Sounds. negative: Chest Tender, Respiratory Distress Cardiovascular: positive: Regular Rhythm, Regular Rate, S1, S2 Gastrointestinal/Abdominal: positive: Normal Bowel Sounds, Flat, Soft. negative : Tender Musculoskeletal: positive: Normal Inspection. negative: CVA Tenderness Extremity: positive: Normal Capillary Refill, Normal Inspection, Normal Range of Motion Integumentary: positive: Normal Color, Dry, Warm Neurologic: positive: Other (confused) Medical Decision Making - Medical Decision Making 03/01/19 05:53 73 with p,h of Alzheimer's dementia presents to the Ed s/p fall. We will evaluate for cervical neck fracture, facial bones and brain Unknown definitive etiology of fall. will rule out bleed and fractures. 03/01/19 05:57 03/01/19 07:09 Nasal bone fracture. No fracture of the cervical neck, skull, or intracranial bleed. Heterogenous nodule on ct. was told to follow up. ok to Discharge. *DC/Admit/Observation/Transfer Diagnosis at time of Disposition: Closed head injury, Nasal bone fracture - Discharge Dispostion Disposition: HOME Condition at time of disposition: Guarded Decision to Admit order: No - Referrals - Patient Instructions Printed Discharge Instructions: DI for Nose Fracture, DI for Closed Head Injury Additional Instructions: Follow up with your primary care provider within the next 3 days. Follow up with your PC[facility] about the findings on you cat scan about the thyroid nodule. Come back to the emergency department for any new, worsening or concerning symptom. - Post Discharge Activity
--- NOTE | 2019-03-01 05:52 | PDOC ---
Attending Attestation - Resident Resident Name: Manuelito Benito - ED Attending Attestation I have performed the following: I have examined & evaluated the patient, The case was reviewed & discussed with the resident, I agree w/resident's findings & plan - HPI HPI: 03/01/19 06:22 Pt has alzheimers. She had a bad dream and got out of bed and fell and hit her face on a plastic chest of drawers. Complianed of neck pain and so her brought her to the ER. - Physicial Exam PE: 03/01/19 06:23 Agree with resident exam - Medical Decision Making 03/01/19 06:23 CT head, face neck normal She will be discharged home 03/01/19 07:04 Patient Name: ABBEY HURTADO THIS IS A PRELIMINARY REPORT FROM [facility] DATE OF SERVICE: 2019-03-01 05:53:45 IMAGES: [id number] EXAM: CT HEAD WITHOUT CONTRAST No acute brain parenchymal abnormality. No hemorrhage, mass or acute territorial infarct. Atrophy and chronic small vessel ischemic changes. No skull fracture. Right nasal fracture, age unknown. Clear visualized paranasal sinuses. Visualized mastoid air cells clear. Patient Name: ABBEY HURTADO THIS IS A PRELIMINARY REPORT FROM [facility] DATE OF SERVICE: 2019-03-01 05:53:45 IMAGES: [id number] EXAM: CT CERVICAL SPINE WITHOUT CONTRAST No acute fracture or malalignment. Multilevel spondylosis. Straightening of cervical lordosis, possibly due to positioning or muscle spasm. Minimal scarring lung apices. Enlarged, heterogeneous right thyroid lobe containing ill-defined nodules, consider ultrasound correlation.
[2019-03-01 05:57] VITALS: BP 143/74; PULSE 97; TEMP 97.8; BMI 17.6
[2019-03-01] MEDS ORDERED: ACETAMINOPHEN 500 MG TABLET (FP) PO ONE (06:24)
[2019-03-01] MEDS ORDERED: ACETAMINOPHEN 500 MG TABLET (FP) ONE (06:32)
[2019-03-01] MEDS ORDERED: BACITRACIN 15 GM TUBE TOPICAL OINTMENT TP ONE (07:13)
[2019-03-01] MEDS ORDERED: BACITRACIN 0.9 GM PACKET ONE (07:15)
== END 2019-03-01 07:34 | disposition home or self-care (01) ==
LOC: JER 05:33
DX: S02.2XXA Fracture of nasal bones, initial encounter for closed fracture (principal); W06.XXXA Fall from bed, initial encounter; Y93.89 Activity, other specified; Y92.032 Bedroom in apartment as the place of occurrence of the external cause; Y99.8 Other external cause status; I10 Essential (primary) hypertension; K21.9 Gastro-esophageal reflux disease without esophagitis; G30.8 Other Alzheimer's disease; F02.80 Dementia in other diseases classified elsewhere, unspecified severity, without behavioral disturbance, psychotic disturbance, mood disturbance, and anxiety
CPT/HCPCS: 70450-TC; 70486-TC; 72125-TC; 99281-25